=== PATIENT | male | born 1960 | race Caucasian/White ===

== ENCOUNTER 2024-10-04 06:39 | Day surgery (SDC) | payer BC ==
[~2024-10-04] VITALS: Ht 182.9 cm; Wt 69.7 kg
[~2024-10-04 06:39] MED LIST: ASPIRIN 32325 MG/TAB PO; BETAPACE AF120 MG PO; FLECAINIDE150 MG PO; LOPRESSOR 225 MG/TAB PO; METOPROLOL SUCC25 MG PO; MULTIPLE VITAMI1 CAP PO; NAPROSYN 2250 MG/TAB PO; TYLENOL 500MG500 MG PO; [UNRECOGNIZED DRUG - OTHER]
[2024-10-04 07:58] VITALS: BP 146/77; PULSE 84; TEMP 98.3
[2024-10-04] MEDS ORDERED: LR 1,000 ML IV SCH (09:00)
[2024-10-04] MEDS ORDERED: Famotidine 20 MG TAB PO SCH (09:00)
[2024-10-04] MEDS ORDERED: NORCO 325 MG-51 TAB PO (09:28)
[2024-10-04] MEDS ORDERED: Glycopyrrolate 0.2 MG/ML 1 ML VIAL ONE (09:40)
[2024-10-04] MEDS ORDERED: Rocuronium 50 MG/5 ML Multi-Dose VIAL ONE (09:40)
[2024-10-04] MEDS ORDERED: Succinylcholine PF 200 MG/10 ML SYRINGE IV ONE (09:40)
[2024-10-04] MEDS ORDERED: fentaNYL 50 MCG/ML 2 ML VIAL ONE (09:40)
[2024-10-04] MEDS ORDERED: Ondansetron 4 MG/2 ML VIAL ONE (09:40)
[2024-10-04] MEDS ORDERED: dexAMETHasone 10 MG/ML VIAL ONE (09:40)
[2024-10-04] MEDS ORDERED: Lidocaine PF 2% (20 MG/ML) 5 ML VIAL ONE (09:40)
[2024-10-04] MEDS ORDERED: Ondansetron 4 MG/2 ML VIAL IV PRN ×2 (09:45→11:15)
[2024-10-04] MEDS ORDERED: Ibuprofen 600 MG TAB PO PRN (09:45)
[2024-10-04] MEDS ORDERED: Acetaminophen 325 MG TAB PO PRN (09:45)
[2024-10-04] MEDS ORDERED: fentaNYL 50 MCG/ML 1 ML SYRINGE/VIAL [PACU/SDC ONLY] IV PRN (11:15)
[2024-10-04] MEDS ORDERED: HYDROmorphone 1 MG/1 ML SYRINGE [PACU/SDC ONLY] IV PRN (11:15)
[2024-10-04] MEDS ORDERED: droPERidol 2.5 MG/ML 2 ML VIAL IV PRN (11:15)
[2024-10-04] MEDS ORDERED: hydrALAZINE 20 MG/ML 1 ML VIAL IV PRN (11:15)
[2024-10-04] MEDS ORDERED: Ketorolac 30 MG/ML VIAL IV PRN (11:15)
[2024-10-04 11:55] VITALS: BP 134/71; PULSE 83; TEMP 97.8
[2024-10-04 12:10] VITALS: BP 129/66; PULSE 87
--- NOTE | 2024-10-04 12:12 | NUR ---
Patient returns to [facility] from [facility], via cart. REprot received from JANE Levine. Bedside hand off received from JANE Reed. VSS. Mother at bedside. Incisions CDI. Crackers and sprite given per request. Pt reports pain is tolerable, denies nausea. Cart in low position, call light within reach.
[2024-10-04 12:25] VITALS: BP 136/79; PULSE 89
--- NOTE | 2024-10-04 12:33 | NUR ---
Discharge instructions and education reviewed with patient and mother, questions answered. Pt is going to sit on edge of cart to get dressed. VSS. REports pain is tolerable, denies nausea. Tolerated snack without issue.
--- NOTE | 2024-10-04 12:55 | NUR ---
Pt dressed, pain tolerable, denies nausea. IV site removed. Down to mothers car at this time, via w/c, accompanied by JANE Parrish. Belonging and discharge education with patient.
== END 2024-10-04 13:00 | disposition home or self-care (01) ==
LOC: SDCO 06:39
DX: K40.20 Bilateral inguinal hernia, without obstruction or gangrene, not specified as recurrent (principal)
CPT/HCPCS: C1781; J0690; J1100; J2405; J2704; J3010; J7120